=== PATIENT | male | born 1955 | race Caucasian/White ===

== ENCOUNTER 2023-01-01 13:16 | Outpatient (CLI) | payer MEDICARE, SELFPAY ==
[2023-01-01 15:05] LABS: Hematocrit 39.4 % (42.0-52.0); Hemoglobin 13.1 g/dL (14.0-18.0); Mean Corpuscular HGB Conc 33.2 g/dl (32-36); Mean Corpuscular Hemoglobin 31.4 pg (26-34); Mean Corpuscular Volume 94.5 fl (80-100); Mean Platelet Volume 10.6 fl (7.4-10.4); Platelet Count Result 255 k/mm3 (150-375); Red Blood Count 4.17 M/mm3 (4.6-6.20); Red Cell Distribution Width 12.4 % (11.5-14.5)
[2023-01-01 15:18] LABS: Alanine Aminotransferase 23 U/L (6-50); Albumin Level 4.2 g/dL (3.5-5.1); Alkaline Phosphatase 71 U/L (38-126); Anion Gap 4 mmol/L (8-16); Aspartate Amino Transferase 36 U/L (17-59); Bilirubin,Total 0.6 mg/dL (0.2-1.3); Blood Urea Nitrogen 19 mg/dL (9-20); CRP 0.6 mg/dL (<1.0); Calcium 8.5 mg/dL (8.4-10.2); Carbon Dioxide 27 mmol/L (22-30); Chloride 106 mmol/L (98-107); Estimated Glomerular Filt Rate > 60; Glucose 89 mg/dL (65-110); Potassium 3.7 mmol/L (3.4-5.0); Sodium 137 mmol/L (137-145); Uric Acid 5.8 mg/dL (3.5-8.5)
[2023-01-01 15:42] LABS: Erythrocyte Sedimentation Rate 11 mm/hr (0-20)
[2023-01-01 15:50] LABS: Vitamin D 25 Hydroxy 53.7 ng/mL
[2023-01-01 17:12] LABS: Iron 61 ug/dL (49-181)
[2023-01-01 17:24] LABS: Percent Iron Saturation 16 % (20-50)
[2023-01-05 11:29] LABS: PSA, Free 0.13 ng/mL; PSA, Total 0.6 ng/mL (<=4.0)
== END 2023-01-01 13:17 | disposition home or self-care (01) ==
PROVIDERS: PCP Internal Medicine Gastroenterology; Visit Provider Internal Medicine
DX: M35.9 Systemic involvement of connective tissue, unspecified (principal); M19.90 Unspecified osteoarthritis, unspecified site; D64.9 Anemia, unspecified
CPT/HCPCS: 36415; 80053; 82306; 83540; 83550; 84153; 84154; 84443; 84550; 85027; 85652; 86140

== ENCOUNTER 2023-06-27 12:16 | Emergency (ER) | payer MEDICARE, SELFPAY ==
[2023-06-27 12:19] VITALS: BP 139/78; PULSE 69; RESP 18; TEMP 36.8; O2SAT 97
[2023-06-27 13:33] VITALS: BP 116/90; PULSE 67; RESP 18; O2SAT 97
--- NOTE | 2023-06-27 14:07 | ED.EPISTAXIS ---
HPI - Epistaxis General Chief complaint: Epistaxis Stated complaint: nose bleed continuous Time Seen by Provider: 06/27/23 13:09 History of Present Illness HPI Narrative: 68-year-old male presenting with nosebleed, it came from his left nostril earlier today, he was initially concerned because it looked like there was a lot of blood, it stopped on its own but then restarted when he blew his nose, and then again before coming in, his wanted him to be checked. Related Data Home Medications Medication Instructions Recorded Confirmed clonazepam 0.5 mg tablet 0.25 mg PO QHS 04/29/22 zolpidem 5 mg tablet 5 mg PO QHS PRN 06/30/22 citalopram 10 mg tablet 10 mg PO DAILY 09/16/22 ferric citrate 210 mg iron tablet 210 mg PO DAILY 09/16/22 njxwnhrt-svkz-lvlxt acid 120 tablet PO 09/16/22 mcg-herbal no.293 50 mg chewable tablet ([employer] Gummy) Allergies Allergy/AdvReac Type Severity Reaction Status Date / Time No Known Allergies Allergy Verified 06/27/23 12:53 Review of Systems Review of Systems: CONST: No fever. HEENT: Nosebleed C/V: No chest pain RESP: No difficulty breathing GI: No abdominal pain : No dysuria. M/S: No joint pain. SKIN: No rash. NEURO: No lightheadedness PSYCH: [No depression] [facility] Past Medical History Medical History (Updated 06/27/23 @ 13:09 by Verona Myers MD) ARLETH positive Anemia Anxiety Arthritis Bilateral hand pain Chronic shoulder pain Hip pain, bilateral Inflammatory arthritis Mixed connective tissue disease Undifferentiated connective tissue disease Surgical History Surgical History H/O colonoscopy with polypectomy Hx of appendectomy Family History Family History Mother Pancreatic cancer Social History Social History Smoking status: Smoker, status unknown Alcohol intake: never Exam Narrative: EXAMINATION OF ORGAN SYSTEMS/BODY AREAS: Constitutional: Vital signs per nursing GENERAL:[No acute distress, non-toxic appearing.] HEAD: Normal with no signs of head trauma. EYES: EOMI, conjunctiva normal ENT: Some dried blood in left naris LUNGS: Nonlabored breathing. HEART: [Regular rate and rhythm] EXT: Normal range of motion SKIN: [No rashes or lesions.] NEURO: [Alert and oriented x 3. No gross focal sensory or strength deficits.] PSYCH: Normal affect Course Vital Signs Vital signs: Vital Signs Temperature 98.3 F 06/27/23 12:19 Pulse Rate 69 06/27/23 12:19 Respiratory Rate 18 06/27/23 12:19 Blood Pressure 139/78 06/27/23 12:19 Pulse Oximetry 97 06/27/23 12:19 Oxygen Delivery Room Air 06/27/23 12:19 Temperature 98.3 F 06/27/23 12:19 Pulse Rate 67 06/27/23 13:33 Respiratory Rate 18 06/27/23 13:33 Blood Pressure 116/90 06/27/23 13:33 Pulse Oximetry 97 06/27/23 13:33 Oxygen Delivery Room Air 06/27/23 12:19 MDM - Epistaxis MDM Narrative Medical decision making narrative: 68-year-old male presenting with nosebleed that has now stopped, he is well-appearing on exam, he declined any testing at this time which I feel is reasonable as he is not having any acute bleeding, I have given him instructions on how to handle a nosebleed and return precautions with at bedside, and will give him follow-up to ENT. Patient agreeable to this plan. Discharge Plan Discharge Clinical Impression: Epistaxis Patient Disposition: Home, Self-Care Condition: Stable Instructions: Antibiotic Form, Nosebleed (ED) Additional Instructions: Please try to keep hydrated and out of the heat, avoid blowing or picking at your nose, and if you start having another nosebleed, make sure that you try to blow out all the clots, apply some Afrin, and then hold pressure on your nose for at least 10 to 15 minutes, while leaning her head forward. Come
== END 2023-06-27 13:35 | disposition home or self-care (01) ==
PROVIDERS: Emergency Provider Emergency Medicine
DX: R04.0 Epistaxis (principal); M35.1 Other overlap syndromes; M19.90 Unspecified osteoarthritis, unspecified site; F41.9 Anxiety disorder, unspecified; Z86.2 Personal history of diseases of the blood and blood-forming organs and certain disorders involving the immune mechanism
CPT/HCPCS: 99283